=== PATIENT | female | born 1970 | race Caucasian/White ===

== ENCOUNTER 2019-02-27 18:03 | Inpatient (IN) | payer OTHER ==
[~2019-02-27] VITALS: Ht 170.2 cm; Wt 59.0 kg
[2019-02-27] MEDS ORDERED: ACET-2605 PO (18:20)
[2019-02-27 18:39] LABS: *BILIRUBIN,URIN NEGATIVE (NEGATIVE); *BLOOD, URINE NEGATIVE (NEGATIVE); *CLARITY,URINE SLIGHTLY CLOUDY (CLEAR); *COLOR,URINE YELLOW (YELLOW); *KETONES,URINE NEGATIVE (NEGATIVE); *UROBILINOGEN,URINE 0.2 E.U./dl (NORMAL); LEUKOCYTE ESTERASE ,URINE TRACE (NEGATIVE); NITRITE, URINE NEGATIVE (NEGATIVE); UGLUCOSE NEGATIVE (NEGATIVE)
[2019-02-27 18:40] LABS: *URINE HCG, QUAL NEGATIVE (NEGATIVE)
[2019-02-27 18:48] LABS: BACTERIA,URINE MANY /HPF (NONE SEEN); MUCUS,URINE MANY /LPF (0-FEW); RBC,URINE 0-3 /HPF (0-3); SQUAMOUS EPITHELIAL CELL,UR MANY /HPF (NONE SEEN); TRICHOMONAS,URINE PRESENT /HPF (NONE SEEN)
[2019-02-27] MEDS ORDERED: IV NORMAL SALINE 1000 ML BAG IV ONE (19:00)
[2019-02-27] MEDS ORDERED: HYDROMORPHONE 1 MG/1 ML DISP.SYRIN IV ONE ×3 (19:00→21:45)
[2019-02-27] MEDS ORDERED: ONDANSETRON 4 MG/2 ML VIAL IV ONE (19:00)
[2019-02-27 19:06] LABS: BASOPHILS % (AUTO) 0.4 % (0.0-2.0); EOSINOPHILS # (AUTO) 0.2 K/uL (0.0-0.7); EOSINOPHILS % (AUTO) 1.7 % (0.0-7.0); HEMATOCRIT 39.1 % (31.2-41.9); LYMPHOCYTES # (AUTO) 1.9 K/uL (20.0-40.0); LYMPHOCYTES % (AUTO) 18.8 % (20.5-51.5); MEAN CORPUSCULAR HGB CONC 33 g/dL (32.3-35.6); MEAN CORPUSCULAR VOLUME 93.3 fL (75.5-95.3); MONOCYTES # (AUTO) 0.8 K/uL (2.0-10.0); MONOCYTES % (AUTO) 8.4 % (0.0-11.0); NEUTROPHILS % (AUTO) 70.7 % (38.5-71.5); PLATELET COUNT (AUTO) 364 K/uL (179-408); RED BLOOD CELL COUNT(AUTO) 4.19 MIL/uL (3.63-4.92); WHITE BLOOD COUNT (AUTO) 9.9 K/uL (3.8-11.8)
[2019-02-27 19:14] LABS: CREATININE 0.7 mg/dL (0.6-1.3); POTASSIUM 4.2 mmol/L (3.5-5.1)
[2019-02-27 19:19] LABS: BILIRUBIN,DIRECT 0.1 mg/dL (0.0-0.2); BILIRUBIN,TOTAL 0.3 mg/dL (0.2-1.0)
[2019-02-27 19:20] LABS: TOTAL PROTEIN, SERUM 7.6 g/dL (6.4-8.2)
[2019-02-27] MEDS ORDERED: IV NORMAL SALINE 250 ML IV ONE (20:38)
[2019-02-27] MEDS ORDERED: IOHEXOL 300MG/ML 100 ML INFUS..BTL ONE (20:38)
[2019-02-27] MEDS ORDERED: SWABABLE VALVE TRANSFER SET EA MC ONE (20:38)
[2019-02-27] MEDS ORDERED: METRONIDAZOLE 500 MG TABLET PO ONE (21:30)
[2019-02-27] MEDS ORDERED: HYDROMORPHONE 1 MG/1 ML DISP.SYRIN ONE (21:47)
[2019-02-28] MEDS ORDERED: Z GUARD REMEDY PASTE 57 GM TUBE TOP PRN (00:45)
[2019-02-28] MEDS ORDERED: HYDROCODONE/APAP 5-325MG TABLET PO PRN (00:45)
[2019-02-28] MEDS ORDERED: IV NS 1000 ML 1,000 ML IV PRN (00:45)
[2019-02-28] MEDS ORDERED: ACETAMINOPHEN 325 MG TABLET PO PRN (00:45)
[2019-02-28] MEDS ORDERED: MORPHINE SULFATE 2 MG/1 ML DISP.SYRIN IV PRN (00:45)
[2019-02-28] MEDS ORDERED: MAGNESIUM HYDROXIDE 30 ML LIQUID UDC PO PRN (00:45)
[2019-02-28 01:15] VITALS: BP 127/45
[2019-02-28] MEDS: ONDANSETRON 4 MG/2 ML VIAL IV PRN ×2 (02:12→23:45)
[2019-02-28 05:29] VITALS: BP 115/63
[2019-02-28 06:59] LABS: BILIRUBIN,TOTAL 0.3 mg/dL (0.2-1.0); CREATININE 0.7 mg/dL (0.6-1.3); PHOSPHOROUS 3.1 mg/dL (2.5-4.9); POTASSIUM 4.1 mmol/L (3.5-5.1)
[2019-02-28 07:01] LABS: THYROID STIMULATING HORMONE 1.346 mIU/mL (0.358-3.740)
[2019-02-28 07:14] LABS: BASOPHILS % (AUTO) 0.3 % (0.0-2.0); EOSINOPHILS # (AUTO) 0.1 K/uL (0.0-0.7); EOSINOPHILS % (AUTO) 0.9 % (0.0-7.0); HEMATOCRIT 36.9 % (31.2-41.9); HEMOGLOBIN 12.1 g/dL (10.9-14.3); LYMPHOCYTES # (AUTO) 1.5 K/uL (20.0-40.0); LYMPHOCYTES % (AUTO) 13.3 % (20.5-51.5); MEAN CORPUSCULAR HEMOGLOBIN 30.9 uug (24.7-32.8); MEAN CORPUSCULAR HGB CONC 33 g/dL (32.3-35.6); MEAN CORPUSCULAR VOLUME 94.3 fL (75.5-95.3); MONOCYTES # (AUTO) 0.8 K/uL (2.0-10.0); MONOCYTES % (AUTO) 7.2 % (0.0-11.0); NEUTROPHILS # (AUTO) 8.7 K/uL (1.8-8.9); NEUTROPHILS % (AUTO) 78.3 % (38.5-71.5); PLATELET COUNT (AUTO) 347 K/uL (179-408); RED BLOOD CELL COUNT(AUTO) 3.91 MIL/uL (3.63-4.92); WHITE BLOOD COUNT (AUTO) 11.1 K/uL (3.8-11.8)
[2019-02-28 08:45] VITALS: BP 102/49
[2019-02-28] MEDS: NICOTINE 14 MG/24HR PATCH TD SCH (08:45)
[2019-02-28] MEDS ORDERED: PENICILLIN G BENZATHINE 2.4 MMU/4 ML DISP.SYRIN IM ONE (09:15)
[2019-02-28] MEDS ORDERED: ACETAMINOPHEN ES 500 MG TABLET PO PRN (09:15)
[2019-02-28] MEDS ORDERED: MORPHINE SULFATE 4 MG/1 ML DISP.SYRIN IV PRN (09:15)
[2019-02-28] MEDS: METRONIDAZOLE 500 MG TABLET PO SCH ×2 (10:19→17:06)
[2019-02-28 11:13] VITALS: BP 105/57
[2019-02-28] MEDS: IV NS 1000 ML 1,000 ML IV PRN ×2 (13:52→23:51)
[2019-02-28 15:47] VITALS: BP 100/49
[2019-02-28] MEDS ORDERED: AZITHROMYCIN 250 MG TABLET PO ONE (17:30)
[2019-02-28 20:00] VITALS: BP 104/55
[2019-03-01 06:07] VITALS: BP 112/55
[2019-03-01] MEDS: NICOTINE 14 MG/24HR PATCH TD SCH (08:24)
[2019-03-01] MEDS: METRONIDAZOLE 500 MG TABLET PO SCH (08:24)
[2019-03-01] MEDS: IV NS 1000 ML 1,000 ML IV PRN (10:18)
[2019-03-01 11:43] VITALS: BP 98/58
[2019-03-01] MEDS ORDERED: METR-147 PO (12:13)
[2019-03-01] MEDS ORDERED: LEVO500T2 PO (12:16)
== END 2019-03-01 13:05 | disposition home or self-care (01) | DRG 531 ==
LOC: ER 18:05 → MEDSURG3 02-28 00:28
PROVIDERS: ADMIT Hospitalist; ATTEND Registered Nurse
DX: A59.00 Urogenital trichomoniasis, unspecified (principal); A64 Unspecified sexually transmitted disease; F15.10 Other stimulant abuse, uncomplicated; F17.210 Nicotine dependence, cigarettes, uncomplicated; R10.13 Epigastric pain; R11.2 Nausea with vomiting, unspecified; Z87.09 Personal history of other diseases of the respiratory system; R07.81 Pleurodynia
CPT/HCPCS: 36415; 70030-TC; 71045; 83690; 83735; 84100; 84443; 84703; 85025; 87086; 87806; 93005; A4663; G0378; J1170; J2270; J2405; J7030; J7050; Q0144; Q9967